=== PATIENT | male | born 1945 | race Caucasian/White ===

== ENCOUNTER 2022-12-07 05:35 | Observation (INO) | payer MEDICARE ==
[2022-12-07] MEDS ORDERED: Protamine Sulfate 50 MG/5 ML VIAL ONE (06:48)
[2022-12-07] MEDS ORDERED: CEFAZOLIN 2 GM VIAL ONE (06:48)
[2022-12-07] MEDS ORDERED: Heparin 10,000 UNITS/ 10 ML VIAL ONE (06:49)
[2022-12-07] MEDS ORDERED: fentaNYL 50 mcg/mL 1 mL Vial ONE ×2 (07:21→14:56)
[2022-12-07] MEDS ORDERED: PROPOFOL 20 ML ONE (07:22)
[2022-12-07] MEDS ORDERED: SUGAMMADEX SODIUM 200 MG/2 ML VIAL ONE (07:22)
[2022-12-07] MEDS ORDERED: Norepinephrine 4 MG/4 ML VIAL ONE (07:22)
[2022-12-07] MEDS ORDERED: PHENYLEPHRINE-NS 100 MCG/ML 10 ML SYRINGE ONE (07:22)
[2022-12-07] MEDS ORDERED: Lidocaine 2% PF 100 mg/5 ml Syringe ONE (07:22)
[2022-12-07] MEDS ORDERED: Dexamethasone 4 mg/ml Vial ONE ×2 (07:25→07:26)
[2022-12-07] MEDS ORDERED: Ondansetron PF 4 MG/2 ML Vial ONE ×2 (07:25→08:13)
[2022-12-07] MEDS ORDERED: Lidocaine 1% PF 5 ML VIAL ONE (08:13)
[2022-12-07] MEDS ORDERED: Dexamethasone 20 MG/5 ML VIAL ONE (08:13)
[2022-12-07] MEDS ORDERED: Rocuronium Bromide 10 MG/ML (10ML VIAL) ONE (08:13)
[2022-12-07] MEDS ORDERED: PROPOFOL 200 MG/20 ML VIAL ONE (08:13)
[2022-12-07] MEDS ORDERED: Iopamidol 370 76% 100 ML VIAL ONE (12:18)
[2022-12-07] MEDS ORDERED: Acetaminophen 325 MG TAB PO PRN (15:57)
[2022-12-07] MEDS ORDERED: HYDROcodone/Acetaminophen 5/325 mg Tablet PO PRN ×2 (15:59)
[2022-12-07 20:00] VITALS: BMI 30.1
[2022-12-07] MEDS ORDERED: Nitroglycerin 0.4 MG TAB (25 Tab Bottle) SL PRN (22:42)
[2022-12-07] MEDS ORDERED: Ketotifen 0.035% Ophth Soln 5 ml Bottle EA EYE PRN (22:44)
[2022-12-07] MEDS ORDERED: Apixaban 5 MG TAB PO SCH (23:00)
[2022-12-08 07:53] VITALS: BP 150/73; TEMP 97.5
[2022-12-08] MEDS ORDERED: Carbidopa/Levodopa 10-100 mg Tablet PO SCH (09:00)
[2022-12-08] MEDS ORDERED: Gabapentin 100 MG CAP PO SCH (09:00)
[2022-12-08] MEDS ORDERED: Losartan 25 MG TAB PO SCH (09:00)
[2022-12-08] MEDS ORDERED: Apixaban 5 MG TAB PO SCH (09:00)
[2022-12-08] MEDS ORDERED: Clopidogrel Bisulfate 75 MG TAB PO SCH (09:00)
[2022-12-08] MEDS ORDERED: Atorvastatin Calcium 40 MG TAB PO SCH (09:00)
== END 2022-12-08 11:30 | disposition home or self-care (01) ==
LOC: INTOOBSV 05:35 → SURG A 05:35 → 2SW 19:07
PROVIDERS: ADMIT Internal Medicine Cardiovascular Disease; ATTEND Internal Medicine Cardiovascular Disease
PROC: 02L73DK Occlusion of Left Atrial Appendage with Intraluminal Device, Percutaneous Approach (ICD-10-PCS; principal; 2022-12-07)
DX: I48.0 Paroxysmal atrial fibrillation (principal); I63.9 Cerebral infarction, unspecified; I47.19 Other supraventricular tachycardia; I47.20 Ventricular tachycardia, unspecified; I10 Essential (primary) hypertension; G47.33 Obstructive sleep apnea (adult) (pediatric); E78.5 Hyperlipidemia, unspecified; Z95.5 Presence of coronary angioplasty implant and graft; Z79.899 Other long term (current) drug therapy; Z79.01 Long term (current) use of anticoagulants
CPT/HCPCS: 33340; 85347; 86850; 86900; 86901; 93306; 93312; C1759; C1760; C1769 ×2; C1894 ×4; J3010; J1100; J1644; J2001; J2405; J2704; J2720

== ENCOUNTER → 2023-01-18 | Day surgery (SDC) | payer MEDICARE ==
[2023-01-16 13:41] VITALS: BMI 30.4
[~2023-01-18] MED LIST: Lidocaine 1% PF 5 ML VIAL ONE; PROPOFOL 200 MG/20 ML VIAL ONE
[2023-01-18 07:43] LABS: #Eosinphils 0.1 thou/uL (0.0-0.7); #Monocytes 0.6 thou/uL (0.11-0.59); #Neutrophils 5.1 thou/uL (1.40-6.50); %Basophils 0.3 % (0.0-1.0); %Eosinophils 1.2 % (0.0-10.0); %Lymphocytes 12.1 % (21.0-51.0); %Monocytes 9.1 % (0.0-10.0); %Neutrophils 76.7 % (42.0-75.0); Hematocrit 44.9 % (42.0-52.0); Hemoglobin 14.6 g/dL (14.0-18.0); Mean Corpuscular HGB CONC 32.5 g/dL (32.0-36.0); Mean Corpuscular Hemoglobin 28.9 pg (27.0-31.0); Mean Corpuscular Volume 88.7 fl (78.0-98.0); Mean Platelet Volume 9.9 fL (7.4-10.4); Platelet Count 206 10x3/uL (130-400); RBC Distribution Width 13.2 % (11.5-14.5); Red Blood Cell (RBC) Count 5.06 mill/uL (4.70-6.10); White Blood Cell (WBC) Count 6.7 10x3/uL (4.8-10.8)
[2023-01-18 08:05] LABS: Anion Gap 10 mmol/L (10-20); BUN (Urea Nitrogen) 16 mg/dL (8.4-25.7); Calc. Creatinine Clearance 90 mL/min (70-130); Calcium 9.1 mg/dL (7.8-10.44); Carbon Dioxide 24 mmol/L (23-31); Chloride 110 mmol/L (98-107); Estimated GFR 88; Glucose 85 mg/dL (83-110); Potassium 4.3 mmol/L (3.5-5.1); Sodium 140 mmol/L (136-145)
== END ==
LOC: SDC 06:43
PROVIDERS: ATTEND Internal Medicine Cardiovascular Disease
PROC: B246ZZ4 Ultrasonography of Right and Left Heart, Transesophageal (ICD-10-PCS; principal; 2023-01-18)
DX: I48.0 Paroxysmal atrial fibrillation (principal); I63.9 Cerebral infarction, unspecified; Z95.818 Presence of other cardiac implants and grafts
CPT/HCPCS: 36415; 80048; 85025; 93312; J2704